=== PATIENT | female | born 1995 | race African-American/Black ===

== ENCOUNTER 2023-07-10 16:45 | Emergency (ER) | payer OTHER ==
[~2023-07-10] VITALS: Ht 165.1 cm; Wt 56.7 kg
[2023-07-10 17:52] LABS: BASO % 0.6 % (0.0-1.0); EOS # 0.1 10^3/uL (0.0-0.5); EOS % 0.8 % (0.0-3.0); HEMATOCRIT 35.3 % (36.0-47.0); HEMOGLOBIN 10.9 g/dl (12.0-15.5); LYMPH # 2.2 10^3/uL (1.5-5.0); LYMPH % 34.9 % (24.0-44.0); MEAN CORPUSCULAR HEMOGLOBIN 24.9 pg (27.0-33.0); MEAN CORPUSCULAR HGB CONC 30.9 g/dl (32.0-36.5); MEAN CORPUSCULAR VOLUME 80.6 fl (80.0-96.0); MONO # 0.5 10^3/uL (0.0-0.8); MONO % 7.5 % (2.0-8.0); NEUTROPHILS # 3.5 10^3/uL (1.5-8.5); PLATELET COUNT, AUTOMATED 325 10^3/uL (150-450); RED BLOOD COUNT 4.38 10^6/uL (4.00-5.40); WHITE BLOOD COUNT 6.3 10^3/uL (4.0-10.0)
[2023-07-10 18:16] LABS: LIPASE 32 U/L (12-53)
[2023-07-10 18:18] LABS: ALBUMIN 4.2 G/DL (3.2-5.2); ALKALINE PHOSPHATASE 55 U/L (46-116); ALT/SGPT 13 U/L (7.0-40); AST/SGOT 18 U/L (<34); BILIRUBIN,DIRECT 0.1 MG/DL (<0.4); BILIRUBIN,TOTAL 0.5 MG/DL (0.3-1.2); TOTAL PROTEIN 7.4 G/DL (5.7-8.2)
[2023-07-10 18:43] LABS: HCG, SERUM QUALITATIVE NEGATIVE (NEGATIVE)
[2023-07-10] MEDS: IBUPROFEN 600MG TAB PO ONE (20:29)
[2023-07-10] MEDS ORDERED: NAPR-837 PO (22:07)
[2023-07-10 22:12] VITALS: BP 108/76; TEMP 97.1; O2SAT 100
[2023-07-10 22:13] LABS: BLOOD UREA NITROGEN 14 MG/DL (9-23); CALCIUM LEVEL 9.2 MG/DL (8.5-10.1); CARBON DIOXIDE LEVEL 23 MMOL/L (20-31); CHLORIDE LEVEL 108 MMOL/L (98-107); CREATININE FOR GFR 0.63 MG/DL (0.55-1.30); GLOMERULAR FILTRATION RATE > 60.0 (>60); GLUCOSE, FASTING 91 MG/DL (60-100); SODIUM LEVEL 139 MMOL/L (136-145)
== END 2023-07-10 22:18 | disposition home or self-care (01) ==
LOC: M ED 16:45
DX: N92.0 Excessive and frequent menstruation with regular cycle (principal); N94.6 Dysmenorrhea, unspecified; Z79.1 Long term (current) use of non-steroidal anti-inflammatories (NSAID); Z88.6 Allergy status to analgesic agent; Z91.018 Allergy to other foods

== ENCOUNTER 2023-09-23 16:05 | Emergency (ER) | payer OTHER ==
[~2023-09-23] VITALS: Ht 165.1 cm; Wt 55.3 kg
[~2023-09-23 16:05] MED LIST: NAPR-837 PO
[2023-09-23 16:53] LABS: BASO % 0.5 % (0.0-1.0); EOS % 0.5 % (0.0-3.0); HEMOGLOBIN 11.1 g/dl (12.0-15.5); LYMPH % 27.6 % (24.0-44.0); MEAN CORPUSCULAR HEMOGLOBIN 25.6 pg (27.0-33.0); MEAN CORPUSCULAR HGB CONC 31.7 g/dl (32.0-36.5); MEAN CORPUSCULAR VOLUME 80.6 fl (80.0-96.0); MONO # 0.5 10^3/uL (0.0-0.8); NEUTROPHILS # 4.7 10^3/uL (1.5-8.5); NEUTROPHILS % 64.1 % (36.0-66.0); PLATELET COUNT, AUTOMATED 369 10^3/uL (150-450); RED BLOOD COUNT 4.34 10^6/uL (4.00-5.40); WHITE BLOOD COUNT 7.3 10^3/uL (4.0-10.0)
[2023-09-23 17:18] LABS: BLOOD UREA NITROGEN 10 MG/DL (9-23); CALCIUM LEVEL 9.8 MG/DL (8.5-10.1); CARBON DIOXIDE LEVEL 26 MMOL/L (20-31); CHLORIDE LEVEL 107 MMOL/L (98-107); CREATININE FOR GFR 0.61 MG/DL (0.55-1.30); GLOMERULAR FILTRATION RATE > 60.0 (>60); GLUCOSE, FASTING 86 MG/DL (60-100); POTASSIUM SERUM 4.1 MMOL/L (3.5-5.1); SODIUM LEVEL 139 MMOL/L (136-145)
[2023-09-23 17:21] LABS: HCG, SERUM QUALITATIVE NEGATIVE (NEGATIVE)
[2023-09-23 18:03] VITALS: BP 116/70; TEMP 98.9; O2SAT 97
[2023-09-23 18:19] LABS: APPEARANCE, URINE HAZY (CLEAR); BACTERIA, URINE AUTO 1+ (NEGATIVE); BILIRUBIN, URINE AUTO NEGATIVE (NEGATIVE); BLOOD, URINE BLOOD 2+ (NEGATIVE); COLOR, URINE YELLOW (YELLOW); GLUCOSE, URINE (UA) AUTO NEGATIVE (NEGATIVE); KETONE, URINE AUTO NEGATIVE (NEGATIVE); LEUKOCYTE ESTERASE, URINE AUTO NEGATIVE (NEGATIVE); MUCUS, URINE SMALL (NEGATIVE); NITRITE, URINE AUTO NEGATIVE (NEGATIVE); PROTEIN, URINE AUTO 1+ mg/dL (NEGATIVE); RBC, URINE AUTO 61 /HPF (0-3); SPECIFIC GRAVITY URINE AUTO 1.019 (1.002-1.035); SQUAMOUS EPITHELIAL CELL UR AU 3 /HPF (0-6); UROBILINOGEN, URINE AUTO 0.2 mg/dL (0.0-2.0); WBC, URINE AUTO 3 /HPF (0-3)
[2023-09-23] MEDS: ONDANSETRON 4MG ORAL DISINTEGRATING TAB PO ONE (18:53)
[2023-09-23] MEDS: IBUPROFEN 600MG TAB PO ONE (18:54)
== END 2023-09-23 20:01 | disposition home or self-care (01) ==
LOC: M ED 16:05
DX: N92.0 Excessive and frequent menstruation with regular cycle (principal); N94.6 Dysmenorrhea, unspecified; N80.9 Endometriosis, unspecified; D64.9 Anemia, unspecified; Z87.42 Personal history of other diseases of the female genital tract; Z88.6 Allergy status to analgesic agent; Z91.018 Allergy to other foods; Z91.048 Other nonmedicinal substance allergy status

== ENCOUNTER 2023-11-12 10:46 | Outpatient (CLI) | payer OTHER ==
[~2023-11-12] VITALS: Ht 165.1 cm; Wt 54.5 kg
[~2023-11-12 10:46] MED LIST changes: +ALBUTEROL SULFATE 2.5MG/0.5ML INH NEB SOLN INH PRN; +EPINEPHrine INJ 1 MG/ML 1ML AMP IM PRN; +NS 1,000 ML IV SCH; +diphenhydrAMINE 50MG/ML VIAL IV PRN; +methylPREDNISolone 125MG 2ML VIAL IV PRN
[2023-11-12 11:20] VITALS: BP 123/61; O2SAT 97
[2023-11-12] MEDS: IRON SUCROSE 300 MG in NS 250 ML OVER 90 MIN. IV ONE (11:37)
[2023-11-12 13:24] VITALS: BP 113/65; O2SAT 98
== END 2023-11-12 13:25 ==
LOC: M INFU 10:46
PROVIDERS: ATTEND Obstetrics & Gynecology
DX: D64.9 Anemia, unspecified (principal); Z88.1 Allergy status to other antibiotic agents; Z91.010 Allergy to peanuts
CPT/HCPCS: 96365; 96366; J1756

== ENCOUNTER 2023-11-15 09:47 | Emergency (ER) | payer OTHER ==
[~2023-11-15] VITALS: Ht 165.1 cm; Wt 58.2 kg
[~2023-11-15 09:47] MED LIST changes: -ALBUTEROL SULFATE 2.5MG/0.5ML INH NEB SOLN INH PRN; -EPINEPHrine INJ 1 MG/ML 1ML AMP IM PRN; -NS 1,000 ML IV SCH; -diphenhydrAMINE 50MG/ML VIAL IV PRN; -methylPREDNISolone 125MG 2ML VIAL IV PRN
[2023-11-15] MEDS ORDERED: ONDA-83 PO (10:03)
[2023-11-15] MEDS ORDERED: GABA-282 PO (10:03)
[2023-11-15] MEDS ORDERED: XULA1DIS TOP (10:03)
[2023-11-15] MEDS ORDERED: SERT25TA85 PO (10:03)
[2023-11-15] MEDS ORDERED: MULTTAB20 PO (10:03)
[2023-11-15 12:12] LABS: BASO % 0.3 % (0.0-1.0); EOS % 0.3 % (0.0-3.0); HEMATOCRIT 34.7 % (36.0-47.0); LYMPH # 1.7 10^3/uL (1.5-5.0); MEAN CORPUSCULAR HEMOGLOBIN 26.1 pg (27.0-33.0); MEAN CORPUSCULAR HGB CONC 31.7 g/dl (32.0-36.5); MEAN CORPUSCULAR VOLUME 82.2 fl (80.0-96.0); MONO # 0.3 10^3/uL (0.0-0.8); MONO % 5.5 % (2.0-8.0); NEUTROPHILS % 65.6 % (36.0-66.0); PLATELET COUNT, AUTOMATED 305 10^3/uL (150-450); RED BLOOD COUNT 4.22 10^6/uL (4.00-5.40); WHITE BLOOD COUNT 6.1 10^3/uL (4.0-10.0)
[2023-11-15 12:41] LABS: BLOOD UREA NITROGEN 9 MG/DL (9-23); CALCIUM LEVEL 9.4 MG/DL (8.5-10.1); CARBON DIOXIDE LEVEL 24 MMOL/L (20-31); CHLORIDE LEVEL 109 MMOL/L (98-107); CREATININE FOR GFR 0.64 MG/DL (0.55-1.30); GLOMERULAR FILTRATION RATE > 60.0 (>60); GLUCOSE, FASTING 83 MG/DL (60-100); POTASSIUM SERUM 4.4 MMOL/L (3.5-5.1); SODIUM LEVEL 140 MMOL/L (136-145)
[2023-11-15 12:42] LABS: HCG, SERUM QUALITATIVE NEGATIVE (NEGATIVE)
[2023-11-15] MEDS: IBUPROFEN 800 MG TAB PO ONE (14:53)
[2023-11-15 15:13] VITALS: BP 122/74; TEMP 97.6; O2SAT 100
[2023-11-17] MEDS ORDERED: MACR100C43 PO (09:48)
== END 2023-11-15 15:25 | disposition home or self-care (01) ==
LOC: EDBD 09:47 → M ED 09:47
DX: N94.4 Primary dysmenorrhea (principal); D50.9 Iron deficiency anemia, unspecified; Z88.6 Allergy status to analgesic agent; Z91.010 Allergy to peanuts; Z91.018 Allergy to other foods; Z79.810 Long term (current) use of selective estrogen receptor modulators (SERMs); Z79.899 Other long term (current) drug therapy

== ENCOUNTER 2023-12-03 12:44 | Outpatient (CLI) | payer OTHER ==
[~2023-12-03] VITALS: Ht 165.1 cm; Wt 56.3 kg
[~2023-12-03 12:44] MED LIST changes: +ALBUTEROL SULFATE 2.5MG/0.5ML INH NEB SOLN INH PRN; +EPINEPHrine INJ 1 MG/ML 1ML AMP IM PRN; +GABA-282 PO; +MACR100C43 PO; +MULTTAB20 PO; +ONDA-83 PO; +SERT25TA85 PO; +XULA1DIS TOP; +diphenhydrAMINE 50MG/ML VIAL IV PRN; +methylPREDNISolone 125MG 2ML VIAL IV PRN
[2023-12-03] MEDS ORDERED: NS 1,000 ML IV SCH (13:00)
[2023-12-03 13:15] VITALS: BP 122/59; O2SAT 95
[2023-12-03] MEDS: FERRIC CARBOXYMALTOSE INJ 750 MG in NS 250 ML (>50kg) IV ONE (13:24)
[2023-12-03 14:40] VITALS: BP 121/77; O2SAT 100
== END 2023-12-03 14:40 ==
LOC: M INFU 12:44
PROVIDERS: ATTEND Obstetrics & Gynecology
DX: D64.9 Anemia, unspecified (principal); Z88.8 Allergy status to other drugs, medicaments and biological substances; Z91.018 Allergy to other foods
CPT/HCPCS: 96365; J1439